=== PATIENT | female | born 2000 | race African-American/Black ===

== ENCOUNTER 2022-12-11 23:15 | Inpatient (IN) | payer MEDICAID, OTHER ==
[2022-12-11 23:38] VITALS: BMI 37.6
[2022-12-12] MEDS ORDERED: hydrALAZINE 20 MG/ML VIAL SLOW IVP PRN ×2 (00:10→12:24)
[2022-12-12] MEDS ORDERED: Lactated Ringer's 1,000 ML IV SCH ×3 (00:15→04:00)
[2022-12-12] MEDS ORDERED: Ondansetron PF 4 MG/2 ML Vial IVP PRN ×5 (03:50→12:24)
[2022-12-12] MEDS ORDERED: Lidocaine 1% (PF) 30 ML VIAL SC PRN (03:50)
[2022-12-12] MEDS ORDERED: HYDROcodone/Acetaminophen 5/325 mg Tablet PO PRN ×2 (03:50)
[2022-12-12] MEDS ORDERED: Promethazine HCl 25 MG/ML VIAL IM PRN ×3 (03:50→09:41)
[2022-12-12] MEDS ORDERED: fentaNYL 50 mcg/mL 1 mL Vial SLOW IVP PRN ×2 (03:50→09:41)
[2022-12-12] MEDS ORDERED: Methylergonovine 0.2 MG/ML VIAL IM PRN ×2 (03:50→12:24)
[2022-12-12] MEDS ORDERED: Ibuprofen 800 MG TAB PO PRN (03:50)
[2022-12-12] MEDS ORDERED: Misoprostol 200 MCG TAB PR PRN ×2 (03:50→12:24)
[2022-12-12] MEDS ORDERED: Acetaminophen 500 MG TAB PO PRN (03:50)
[2022-12-12] MEDS ORDERED: Carboprost 250 MCG/ML AMP IM PRN (03:50)
[2022-12-12] MEDS ORDERED: Oxytocin 30 units/NS 500 ML 500 ML IV SCH ×2 (04:00)
[2022-12-12] MEDS ORDERED: Penicillin G Potassium 5 MILL.UNITS in Sodium Chloride 0.9% 100 ML IVPB SCH (04:00)
[2022-12-12 04:14] LABS: Hematocrit 40.3 % (34.9-44.5); Hemoglobin 13.8 g/dL (12.0-15.5); Mean Corpuscular HGB CONC 34.2 g/dL (32.0-36.0); Mean Corpuscular Hemoglobin 31.3 pg (27.0-33.0); Mean Corpuscular Volume 91.4 fl (81.6-98.3); Mean Platelet Volume 11.1 fl (7.4-10.4); Platelet Count 327 10x3/uL (150-450); RBC Distribution Width 13.2 % (11.5-14.5); Red Blood Cell (RBC) Count 4.41 10x6/uL (3.90-5.03); White Blood Cell (WBC) Count 12.6 10x3/uL (3.5-10.5)
[2022-12-12 04:33] LABS: HBSAg Index 0.12 S/CO (0-0.99); Hep B Surf Ag - L&D Non-Reactive S/CO (NonReactive)
[2022-12-12 04:36] LABS: Syphilis Antibody Index 16.32 S/CO (<1.00 Non-Reactive)
[2022-12-12] MEDS ORDERED: fentaNYL/Ropivacaine Epidural 100 ML ONE (04:47)
[2022-12-12 05:06] LABS: Syphilis Antibody INDETERMINATE (Nonreactive)
[2022-12-12] MEDS ORDERED: Naloxone HCl 0.4 mg/ml Vial IVP PRN ×4 (05:41→09:41)
[2022-12-12] MEDS ORDERED: diphenhydrAMINE 50 MG/ML VIAL IVP PRN ×2 (05:41→09:41)
[2022-12-12] MEDS ORDERED: Moisturizing Cream (Eucerin) 113 GM JAR TOP PRN ×2 (05:41→09:41)
[2022-12-12] MEDS ORDERED: Lactated Ringer's 500 ML IV PRN (05:41)
[2022-12-12] MEDS ORDERED: Acetaminophen 325 MG TAB PO PRN ×2 (05:41→12:24)
[2022-12-12] MEDS ORDERED: ePHEDrine Sulfate 50 MG/10 ML VIAL SLOW IVP PRN (05:41)
[2022-12-12] MEDS ORDERED: Communication Order-Pharmacy FS SCH ×2 (05:45→09:45)
[2022-12-12] MEDS ORDERED: fentaNYL 2 mcg/Ropivacaine 0.2% Epidural 100 ML CADD EPIDURAL SCH (05:45)
[2022-12-12] MEDS ORDERED: CEFAZOLIN 2 GM VIAL ONE (07:48)
[2022-12-12] MEDS ORDERED: Azithromycin 500 MG VIAL ONE (07:49)
[2022-12-12] MEDS ORDERED: Penicillin G 2.5 MILL.units 2.5 MILL.UNITS in Premix 1 BAG IVPB SCH (08:00)
[2022-12-12] MEDS ORDERED: Bicitra 30 ML UDCUP PO PRN (08:26)
[2022-12-12] MEDS ORDERED: Famotidine/PF 20 mg/2ml Vial SLOW IVP PRN (08:26)
[2022-12-12] MEDS ORDERED: Tranexamic Acid 1,000 MG/10 ML VIAL IVP PRN (08:27)
[2022-12-12] MEDS ORDERED: Azithromycin 500 MG in Sodium Chloride 0.9% 250 ML 250 ML IVPB SCH (08:30)
[2022-12-12] MEDS ORDERED: CEFAZOLIN 2 GM in Sodium Chloride 0.9% 100 ML IVPB SCH (08:30)
[2022-12-12] MEDS ORDERED: Lidocaine 2% MPF 10 ML AMP (For Epidural Use) ONE (08:42)
[2022-12-12] MEDS ORDERED: ePHEDrine Sulfate 50 MG/10 ML VIAL ONE (08:43)
[2022-12-12] MEDS ORDERED: Ketorolac Tromethamine 30 MG/ML VIAL ONE (08:44)
[2022-12-12] MEDS ORDERED: Oxytocin 10 UNITS/ML VIAL ONE (08:44)
[2022-12-12] MEDS ORDERED: Ondansetron PF 4 MG/2 ML Vial ONE (08:44)
[2022-12-12] MEDS ORDERED: Dexamethasone 4 mg/ml Vial ONE (08:44)
[2022-12-12 09:00] LABS: RapidComm Collect By CBN
[2022-12-12 09:05] LABS: RapidComm Collect By CBN; pH (Cord, venous) 7.107 (7.250-7.350)
[2022-12-12] MEDS ORDERED: Morphine PF 10 MG/10 ML VIAL ONE (09:17)
[2022-12-12] MEDS ORDERED: Promethazine HCl 25 MG/ML VIAL ONE (09:17)
[2022-12-12] MEDS ORDERED: Meperidine HCl/PF 25 MG/ML VIAL SLOW IVP PRN (09:41)
[2022-12-12] MEDS ORDERED: Promethazine HCl 25 MG SUPP PR PRN (09:41)
[2022-12-12] MEDS ORDERED: Naloxone HCl 0.4 mg/ml Vial IV PRN (09:41)
[2022-12-12 10:51] LABS: HIV (1/2) Antibody/Antigen Non-Reactive (NonReactive); HIV 1/2 INDEX 0.12 S/CO (<1.00)
[2022-12-12] MEDS ORDERED: diphenhydrAMINE 25 MG CAP PO PRN (12:24)
[2022-12-12] MEDS ORDERED: Simethicone Chewable 80 MG TAB PO PRN (12:24)
[2022-12-12] MEDS ORDERED: Boostrix 0.5 ML (Tdap) VIAL (>/=7 yrs of age) IM ONE (12:24)
[2022-12-12] MEDS ORDERED: Lanolin Ointment 7 GM TUBE TOP PRN (12:24)
[2022-12-12] MEDS: Ketorolac Tromethamine 30 MG/ML VIAL IVP SCH ×2 (15:24→21:42)
[2022-12-12] MEDS: Ferrous Sulfate 325 MG TAB PO SCH (20:30)
[2022-12-13 04:17] LABS: Hematocrit 30.7 % (34.9-44.5); Hemoglobin 10.3 g/dL (12.0-15.5); Mean Corpuscular HGB CONC 33.6 g/dL (32.0-36.0); Mean Corpuscular Volume 92.5 fl (81.6-98.3); Mean Platelet Volume 10.2 fl (7.4-10.4); Platelet Count 269 10x3/uL (150-450); RBC Distribution Width 13.2 % (11.5-14.5); Red Blood Cell (RBC) Count 3.32 10x6/uL (3.90-5.03)
[2022-12-13] MEDS: Ketorolac Tromethamine 30 MG/ML VIAL IVP SCH (04:39)
[2022-12-13] MEDS: Ferrous Sulfate 325 MG TAB PO SCH ×2 (07:15→21:20)
[2022-12-13] MEDS: Prenatal Vitamin 1 TAB PO SCH (08:13)
[2022-12-13] MEDS: Polyethylene Glycol 3350 17 GM Packet PO SCH (08:13)
[2022-12-13] MEDS: HYDROcodone/Acetaminophen 5/325 mg Tablet PO PRN ×3 (08:17→21:21)
[2022-12-13] MEDS ORDERED: Ketorolac Tromethamine 30 MG/ML VIAL IVP SCH (10:00)
[2022-12-13] MEDS: Ibuprofen 800 MG TAB PO SCH ×2 (13:34→21:21)
[2022-12-13] MEDS ORDERED: Bupivacaine 0.25% HCL 30 ML VIAL ONE (19:06)
[2022-12-13] MEDS ORDERED: Lidocaine 2% MPF 10 ML AMP (For Epidural Use) ONE (19:06)
[2022-12-13] MEDS ORDERED: Bupivacaine PF 0.5% 30 ML VIAL ONE (19:06)
[2022-12-14] MEDS: HYDROcodone/Acetaminophen 5/325 mg Tablet PO PRN ×3 (02:06→12:15)
[2022-12-14] MEDS: Ibuprofen 800 MG TAB PO SCH (06:06)
[2022-12-14] MEDS: Ferrous Sulfate 325 MG TAB PO SCH (07:12)
[2022-12-14 08:16] VITALS: BP 113/67; TEMP 97.4
[2022-12-14] MEDS: Prenatal Vitamin 1 TAB PO SCH (08:18)
[2022-12-14] MEDS: Polyethylene Glycol 3350 17 GM Packet PO SCH (08:18)
== END 2022-12-14 12:25 | disposition home or self-care (01) | DRG 787 ==
LOC: CSHLD/OP 23:15 → CSHLD 12-12 04:07 → CSHPP 12-12 11:20
PROVIDERS: ADMIT Obstetrics & Gynecology; ATTEND Obstetrics & Gynecology
PROC: 10D00Z1 Extraction of Products of Conception, Low, Open Approach (ICD-10-PCS; principal; 2022-12-12)
PROC: 10907ZC Drainage of Amniotic Fluid, Therapeutic from Products of Conception, Via Natural or Artificial Opening (ICD-10-PCS; 2022-12-12)
PROC: 10H07YZ Insertion of Other Device into Products of Conception, Via Natural or Artificial Opening (ICD-10-PCS; 2022-12-12)
DX: O48.0 Post-term pregnancy (principal); O98.13 Syphilis complicating the puerperium; O77.0 Labor and delivery complicated by meconium in amniotic fluid; Z3A.40 40 weeks gestation of pregnancy; Z37.0 Single live birth; O76 Abnormality in fetal heart rate and rhythm complicating labor and delivery; O99.02 Anemia complicating childbirth; D50.0 Iron deficiency anemia secondary to blood loss (chronic); A53.9 Syphilis, unspecified
CPT/HCPCS: 36415; 51702; 82805; 85027; 86593; 86780; 86850; 86900; 86901; 87340; 87389; 88307; 99285; J1100; J1650; J1885; J2274; J2405; J2540; J2550; J2590; J3010; J3490; J7120; S0020